=== PATIENT | female | born 1995 | race African-American/Black ===

== ENCOUNTER 2016-02-27 14:08 | Inpatient (IN) | payer OTHER ==
[2016-02-27] MEDS ORDERED: LIDOCAINE HCL 50 ML VIAL PERI PRN (14:19)
[2016-02-27] MEDS ORDERED: DEXTROSE 5%-LACTATED RINGERS 1,000 ML IV PRN (14:19)
[2016-02-27] MEDS ORDERED: RINGERS SOLUTION,LACTATED 1,000 ML IV ONE (14:19)
[2016-02-27] MEDS ORDERED: OXYTOCIN/DEXTROSE 5%-WATER 30 UNITS/500 ML BAG IV ONE (14:19)
[2016-02-27] MEDS ORDERED: ONDANSETRON HCL/PF 2 MG/ML VIAL IV PRN ×2 (14:19→15:23)
[2016-02-27] MEDS ORDERED: BUPIVACAINE HCL/0.9 % NACL/PF 250 ML EP PRN ×2 (15:23→16:06)
[2016-02-27] MEDS ORDERED: NALOXONE HCL 1 MG/1 ML SYRG IV PRN (15:23)
[2016-02-27] MEDS ORDERED: fentaNYL CITRATE/PF 50 MCG/ML AMPUL IT SCH (15:30)
--- NOTE | 2016-02-27 15:59 | OR ---
Anesthesia Procedure Note - Anesthesia Procedure Note Narrative: Vital Signs - Last Taken Temp 35.9 C L 06/01/15 01:14 Pulse Resp BP 134/76 01/30/16 17:32 Pulse Ox 02/27/16 15:56 ANESTHESIA PROCEDURE NOTE Date of Procedure: 02/27/2016 Time of procedure: 1530. Performed by: Robles Strong CRNA Activity Director: None. Preprocedure diagnosis: Active labor. Post procedure diagnosis: Same. Procedure: Insertion of labor epidural. Indications: The patient is a 20 -year-old multigravida female in active labor requesting labor epidural for pain management. Findings: See below. Details of the procedure: The patient was placed in a sitting position. Back was prepped with DuraPrep. Patient was then draped in a sterile fashion. Lidocaine 1% was infiltrated to the skin and subcutaneous tissues at the level of the L3 4 interspace. The epidural space was identified using a 18-gauge Tuohy needle with [id number] technique. 20 mcg fentanyl was given intrathecally using a 27 ga. spinal needle. Epidural catheter was inserted without difficulty. Negative test dose was elicited using 5 mL of 1.5% preservative-free lidocaine plus epinephrine 1 200,000. The epidural catheter was then taped and secured in place. EBL: Minimal. Fluids: N/A. Specimen: N/A. Post procedure condition: The patient tolerated the procedure well. No complications were noted. Thank you for this consultation. Deshpande CRNA
[2016-02-27] MEDS ORDERED: oxyCODONE HCL/ACETAMINOPHEN 1 TAB TABLET PO PRN (17:51)
[2016-02-27] MEDS ORDERED: BISACODYL 10 MG SUPP.RECT RC PRN (17:51)
[2016-02-27] MEDS ORDERED: SENNOSIDES 8.6 MG TABLET PO PRN (17:51)
[2016-02-27] MEDS ORDERED: HYDROCORTISONE 30 APPL TUBE TP PRN (17:51)
[2016-02-27] MEDS ORDERED: BENZOCAINE/MENTHOL 81 SPRAY CAN TP PRN (17:51)
[2016-02-27] MEDS ORDERED: GLYCERIN/WITCH HAZEL LEAF 40 APPL BOX TP PRN (17:51)
[2016-02-27] MEDS ORDERED: OXYTOCIN/DEXTROSE 5%-WATER 500 UNITS/8,333.33 ML BAG IV ONE (17:51)
--- NOTE | 2016-02-27 17:58 | OR ---
Operative Report - Dictated Report Narrative: Spontaneous vaginal delivery of viable male at 1732 on 02/27/2016 with Apgars 8 and 9, weighing 3417 g, in SASHA position with tight nuchal cord 1. Cord clamping delayed 1 minute. Placenta delivered complete, intact, with three vessel cord Estimated blood loss: 100 mL Lacerations: None History for MU Definition: * The number of deliveries resulting in a live the patient experienced prior to current hospitalization * The previous delivery of live twins or any live multiple gestation is considered one live event. *If primagravida or nulliparous is documented select zero for the number of previous live births. Live Events: 2
[2016-02-27] MEDS: MISOPROSTOL 100 MCG TABLET PO SCH (18:55)
[2016-02-27] MEDS: IBUPROFEN 800 MG TABLET PO PRN (18:55)
[2016-02-27] MEDS: oxyCODONE HCL/ACETAMINOPHEN 1 TAB TABLET PO PRN ×2 (20:24→23:49)
[2016-02-27] MEDS: DOCUSATE SODIUM 100 MG CAPSULE PO SCH (22:36)
[2016-02-28] MEDS: MISOPROSTOL 100 MCG TABLET PO SCH ×3 (02:12→20:36)
[2016-02-28] MEDS: oxyCODONE HCL/ACETAMINOPHEN 1 TAB TABLET PO PRN ×2 (03:04→07:16)
[2016-02-28] MEDS: IBUPROFEN 800 MG TABLET PO PRN ×3 (03:05→15:14)
--- NOTE | 2016-02-28 08:55 | PN ---
Progess Note - Interim Narrative: 02/28/16 08:54 progress note Subjective: The patient is doing well. She is ambulating, voiding, tolerating by mouth. She has minimal pain and moderate lochia. Objective: General: No acute distress Abdomen: Soft, nontender, fundus is firm just below the umbilicus Extremities: minimal edema, nontender to palpation Assessment and plan: day 1 Pain: Controlled with by mouth medication Routine care.
[2016-02-28] MEDS: DOCUSATE SODIUM 100 MG CAPSULE PO SCH ×2 (08:56→20:37)
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
[2016-02-29] MEDS: MISOPROSTOL 100 MCG TABLET PO SCH ×2 (12:48→12:49)
[2016-02-29] MEDS: IBUPROFEN 800 MG TABLET PO PRN (13:26)
[2016-02-29] MEDS: DOCUSATE SODIUM 100 MG CAPSULE PO SCH (13:26)
[2016-02-29] MEDS: oxyCODONE HCL/ACETAMINOPHEN 1 TAB TABLET PO PRN (13:26)
[2016-02-29 16:25] VITALS: BP 129/75
== END 2016-02-29 16:50 | disposition home or self-care (01) | DRG 775 ==
LOC: OB 14:08
PROVIDERS: ADMIT Obstetrics & Gynecology; ATTEND Obstetrics & Gynecology
PROC: 10E0XZZ Delivery of Products of Conception, External Approach (ICD-10-PCS; principal; 2016-02-27)
PROC: 4A0HXCZ Measurement of Products of Conception, Cardiac Rate, External Approach (ICD-10-PCS; 2016-02-27)
DX: O13.4 Gestational [pregnancy-induced] hypertension without significant proteinuria, complicating childbirth (principal); O69.1XX0 Labor and delivery complicated by cord around neck, with compression, not applicable or unspecified; O60.2 Term delivery with preterm labor; Z3A.37 37 weeks gestation of pregnancy; Z37.0 Single live birth